=== PATIENT | male | born 1965 | race Caucasian/White ===

== ENCOUNTER 2018-01-04 08:58 | Inpatient (IN) | payer OTHER ==
[2018-01-04 14:28] VITALS: BMI 21.4
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
[2018-01-04] MEDS ORDERED: P-EPHED 60MG/TRIPROLIDI 2.5MG TABLET PO PRN (18:11)
[2018-01-04] MEDS ORDERED: MAGNESIUM CITRATE 300 ML BOTTLE PO PRN (18:11)
[2018-01-04] MEDS ORDERED: hydrOXYzine PAMOATE 50 MG CAPSULE (FP) PO PRN (18:11)
[2018-01-04] MEDS ORDERED: LOPERAMIDE HCL 2 MG CAPSULE PO PRN (18:11)
[2018-01-04] MEDS ORDERED: NICOTINE POLACRILEX 2 MG GUM BC PRN (18:11)
[2018-01-04] MEDS ORDERED: guaiFENesin/D-METHORPHAN HB 10 ML UNIT-DOSE CUPS PO PRN (18:11)
[2018-01-04] MEDS ORDERED: IBUPROFEN 400 MG TABLET (FP) PO PRN (18:11)
[2018-01-04] MEDS ORDERED: MAGNESIUM HYDROX 2400MG/30ML ORAL SUSPENSION 30 ML CUP PO PRN (18:11)
[2018-01-04] MEDS ORDERED: MENTHOL/PHENOL 1 EACH UD MM PRN (18:11)
[2018-01-04] MEDS ORDERED: ACETAMINOPHEN 325 MG TABLET (FP) PO PRN (18:11)
[2018-01-04] MEDS ORDERED: MAG HYDROX/AL HYDROX/SIMETH 30 ML UNIT-DOSE CUP PO PRN (18:11)
[2018-01-04] MEDS ORDERED: ALBUTEROL SO4 8 GM HFA INHALER IH PRN (18:14)
[2018-01-04] MEDS ORDERED: METHADONE HCL 10 MG TABLET (FOR DETOX USE ONLY) PO ONE ×2 (19:15→23:00)
[2018-01-04] MEDS ORDERED: chlordiazePOXIDE HCL 25 MG CAPSULE PO ONE (19:15)
[2018-01-04] MEDS: THIAMINE HCL 100 MG TABLET (FP) PO SCH (22:37)
[2018-01-04] MEDS: chlordiazePOXIDE HCL 25 MG CAPSULE PO SCH (22:37)
[2018-01-04] MEDS: BACITRACIN 0.9 GM PACKET TP SCH (22:37)
[2018-01-04] MEDS: MOMETASONE FUROATE 220 MCG/IH INHALER IH SCH (22:38)
[2018-01-05] MEDS: chlordiazePOXIDE HCL 25 MG CAPSULE PO SCH ×4 (05:24→22:09)
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
[2018-01-05] MEDS ORDERED: METHADONE HCL 10 MG TABLET (FOR DETOX USE ONLY) PO SCH (10:00)
[2018-01-05 10:22] LABS: HEMATOCRIT 38.2 % (35.4-49); HEMOGLOBIN 12.4 GM/dL (11.7-16.9); MCH 29.3 pg (25.7-33.7); MCHC 32.5 g/dl (32.0-35.9); MEAN CELL VOLUME 90.3 fl (80-96); PLATELET COUNT 480 K/MM3 (134-434); RBC 4.23 M/mm3 (4.00-5.60); RDW 15.5 % (11.9-15.9); WHITE BLOOD COUNT 10.2 K/mm3 (4.0-10.0)
[2018-01-05 10:34] LABS: CHLORIDE 99 mmol/L (98-107); POTASSIUM 4.4 mmol/L (3.5-5.1); SODIUM 140 mmol/L (136-145)
[2018-01-05] MEDS: BACITRACIN 0.9 GM PACKET TP SCH ×2 (10:40→22:09)
[2018-01-05] MEDS: chlordiazePOXIDE HCL 25 MG CAPSULE PO PRN ×2 (10:40→15:01)
[2018-01-05] MEDS: NICOTINE 21 MG/24 HOURS TOPICAL PATCH TD SCH (10:41)
[2018-01-05] MEDS: PRENATAL VITAMINS W/ FOLIC ACID TABLET (FP) PO SCH (10:41)
[2018-01-05] MEDS: CYCLOBENZAPRINE HCL 10 MG TABLET (FP) PO PRN (10:41)
[2018-01-05 11:14] LABS: ALBUMIN 3.7 g/dl (3.4-5.0); ALK PHOS 74 U/L (45-117); ANION GAP 11 MMOL/L (8-16); BILIRUBIN,TOTAL 0.3 mg/dL (0.2-1); BLOOD UREA NITROGEN 21 mg/dL (7-18); CALCIUM 8.9 mg/dL (8.5-10.1); CO2 30 mmol/L (21-32); CREATININE 1.4 mg/dL (0.55-1.3); GLUCOSE,RANDOM 99 mg/dL (74-106); SGOT/AST 55 U/L (15-37); SGPT/ALT 37 U/L (13-61); TOT PROT 6.9 g/dl (6.4-8.2)
--- NOTE | 2018-01-05 16:29 | PN ---
[facility] CIWA - CIWA Score Nausea/Vomitin-Mild Nausea/No Vomiting Muscle Tremors: 3 Anxiety: 3 Agitation: 3 Paroxysmal Sweats: 1-Minimal Palms Moist Orientation: 0-Oriented Tacttile Disturbances: 0-None Auditory Disturbances: 1-Very Mild Visual Disturbances: 0-None Headache: 1-Very Mild CIWA-Ar Total Score: 13 BHS COWS - Scale Resting Pulse: 0= [place] 80 or Below Sweatin= Chills/Flushing Restless Observation: 1= Difficult to Sit Still Pupil Size: 0= Normal to Room Light Bone or Joint Aches: 2= Severe Diffuse Aches Runny Nose/ Eye Tearin= Nasal Congestion GI Upset > 30mins: 2= Nausea/Diarrhea Tremor Observation of Outstretched Hands: 2= Slight Tremor Visible Yawning Observation: 2= >3x During Session Anxiety or Irritability: 2=Irritable/Anxious Goose Flesh Skin: 0=Smooth Skin COWS Score: 13 S Progress Note (SOAP) Subjective: body ache joints pain sweat tremor anxiety restlessness Objective: 01/05/18 16:28 Vital Signs Temperature 98.2 F 01/05/18 13:56 Pulse Rate 56 L 01/05/18 13:56 Respiratory Rate 18 01/05/18 13:56 Blood Pressure 111/75 01/05/18 13:56 O2 Sat by Pulse Oximetry (%) Laboratory Last Values WBC 10.2 K/mm3 (4.0-10.0) H 01/05/18 07:00 RBC 4.23 M/mm3 (4.00-5.60) 01/05/18 07:00 Hgb 12.4 GM/dL (11.7-16.9) 01/05/18 07:00 Hct 38.2 % (35.4-49) 01/05/18 07:00 MCV 90.3 fl (80-96) 01/05/18 07:00 MCH 29.3 pg (25.7-33.7) 01/05/18 07:00 MCHC 32.5 g/dl (32.0-35.9) 01/05/18 07:00 RDW 15.5 % (11.9-15.9) 01/05/18 07:00 Plt Count 480 K/MM3 (134-434) H 01/05/18 07:00 MPV 8.0 fl (7.5-11.1) 01/05/18 07:00 Sodium 140 mmol/L (136-145) 01/05/18 07:00 Potassium 4.4 mmol/L (3.5-5.1) 01/05/18 07:00 Chloride 99 mmol/L (98-107) 01/05/18 07:00 Carbon Dioxide 30 mmol/L (21-32) 01/05/18 07:00 Anion Gap 11 MMOL/L (8-16) 01/05/18 07:00 BUN 21 mg/dL (7-18) H 01/05/18 07:00 Creatinine 1.4 mg/dL (0.55-1.3) H 01/05/18 07:00 Creat Clearance w eGFR 52.81 (>60) 01/05/18 07:00 Random Glucose 99 mg/dL (74-106) 01/05/18 07:00 Calcium 8.9 mg/dL (8.5-10.1) 01/05/18 07:00 Total Bilirubin 0.3 mg/dL (0.2-1) 01/05/18 07:00 AST 55 U/L (15-37) H 01/05/18 07:00 ALT 37 U/L (13-61) 01/05/18 07:00 Alkaline Phosphatase 74 U/L (45-117) 01/05/18 07:00 Total Protein 6.9 g/dl (6.4-8.2) 01/05/18 07:00 Albumin 3.7 g/dl (3.4-5.0) 01/05/18 07:00 RPR Titer Nonreactive (NONREACTIVE) 01/05/18 07:00 HIV 1&2 Antibody Screen Negative 01/04/18 10:20 HIV P24 Antigen Negative 01/04/18 10:20 lab noted Assessment: 01/05/18 16:28 withdrawal sx Plan: continue detox
--- NOTE | 2018-01-05 16:45 | EKG ---
Test Reason : Blood Pressure : / mmHG Vent. Rate : 069 BPM Atrial Rate : 069 BPM P-R Int : 148 ms QRS Dur : 080 ms QT Int : 386 ms P-R-T Axes : 067 076 064 degrees QTc Int : 413 ms POOR DATA QUALITY, INTERPRETATION MAY BE ADVERSELY AFFECTED NORMAL SINUS RHYTHM NORMAL ECG NO PREVIOUS ECGS AVAILABLE Confirmed by Chris Sher ([id number]) on 01/05/2018 4:45:18 PM Referred By: Confirmed By:Chris Sher
[2018-01-05] MEDS: THIAMINE HCL 100 MG TABLET (FP) PO SCH (22:09)
[2018-01-05] MEDS: MELATONIN 5 MG TABLETS PO PRN (22:10)
[2018-01-05] MEDS: MOMETASONE FUROATE 220 MCG/IH INHALER IH SCH (22:10)
[2018-01-06] MEDS: chlordiazePOXIDE HCL 25 MG CAPSULE PO SCH ×3 (05:46→16:52)
--- NOTE | 2018-01-06 09:55 | PN ---
[facility] CIWA - CIWA Score Nausea/Vomitin-Mild Nausea/No Vomiting Muscle Tremors: 3 Anxiety: 4-Mod. Anxious/Guarded Agitation: 4-Moderately Restless Paroxysmal Sweats: 3 (Facial perspiration) Orientation: 0-Oriented Tacttile Disturbances: 0-None Auditory Disturbances: 0-None Visual Disturbances: 0-None Headache: 0-None Present CIWA-Ar Total Score: 15 BHS COWS - Scale Resting Pulse: 0= [place] 80 or Below Sweatin=Flushed/Facial Moisture (Facial perspiration) Restless Observation: 1= Difficult to Sit Still Pupil Size: 0= Normal to Room Light Bone or Joint Aches: 1= Mild Discomfort Runny Nose/ Eye Tearin= None GI Upset > 30mins: 2= Nausea/Diarrhea (Denies diarrhea) Tremor Observation of Outstretched Hands: 2= Slight Tremor Visible Yawning Observation: 0= None Anxiety or Irritability: 1=Feels Anxious/Irritable Goose Flesh Skin: 0=Smooth Skin COWS Score: 9 BHS Progress Note (SOAP) Subjective: States feeling very nauseous and anxious. Feeling weak. States doesn't want bacitracin for wound- needs a special cream that is ordered on-line. Prefers just a dry dressing to (R) skin graft and lesion site. Objective: A&O x3. Has perspiration of face but not profuse. Tremors of hands noted. Abd S/ NT/BS+. No drainage from (R) skin graft site. Pedal pulses (+) Vital Signs 01/06/18 01/06/18 06:00 09:48 Temperature 97.8 F 97.7 F Pulse Rate 76 71 Respiratory 20 16 Rate Blood Pressure 162/86 113/76 Lab Results WBC 10.2 K/mm3 (4.0-10.0) H 01/05/18 07:00 RBC 4.23 M/mm3 (4.00-5.60) 01/05/18 07:00 Hgb 12.4 GM/dL (11.7-16.9) 01/05/18 07:00 Hct 38.2 % (35.4-49) 01/05/18 07:00 MCV 90.3 fl (80-96) 01/05/18 07:00 MCHC 32.5 g/dl (32.0-35.9) 01/05/18 07:00 RDW 15.5 % (11.9-15.9) 01/05/18 07:00 Plt Count 480 K/MM3 (134-434) H 01/05/18 07:00 Sodium 140 mmol/L (136-145) 01/05/18 07:00 Potassium 4.4 mmol/L (3.5-5.1) 01/05/18 07:00 Chloride 99 mmol/L (98-107) 01/05/18 07:00 Carbon Dioxide 30 mmol/L (21-32) 01/05/18 07:00 Anion Gap 11 MMOL/L (8-16) 01/05/18 07:00 BUN 21 mg/dL (7-18) H 01/05/18 07:00 Creatinine 1.4 mg/dL (0.55-1.3) H 01/05/18 07:00 Random Glucose 99 mg/dL (74-106) 01/05/18 07:00 Calcium 8.9 mg/dL (8.5-10.1) 01/05/18 07:00 Labs reviewed. Assessment: Withdrawal symptoms. Plan: Continue detox. D/c bacitracin Dry dressings to (R) graft site wound/lesion daily and prn.
[2018-01-06] MEDS: PRENATAL VITAMINS W/ FOLIC ACID TABLET (FP) PO SCH (10:14)
[2018-01-06] MEDS: NICOTINE 21 MG/24 HOURS TOPICAL PATCH TD SCH (10:14)
[2018-01-06] MEDS: METHADONE HCL 5 MG TABLET (FOR DETOX USE ONLY) PO SCH (10:15)
[2018-01-06] MEDS ORDERED: cloNIDine HCL 0.1 MG TABLET PO ONE (12:27)
[2018-01-06] MEDS: chlordiazePOXIDE HCL 25 MG CAPSULE PO PRN ×2 (12:43→19:42)
[2018-01-06] MEDS ORDERED: hydrOXYzine PAMOATE 50 MG CAPSULE (FP) PO PRN (21:23)
[2018-01-06] MEDS: cloNIDine HCL 0.1 MG TABLET PO SCH (22:17)
[2018-01-06] MEDS: chlordiazePOXIDE 5 MG CAPSULE PO SCH (22:17)
[2018-01-06] MEDS: THIAMINE HCL 100 MG TABLET (FP) PO SCH (22:17)
[2018-01-06] MEDS: MOMETASONE FUROATE 220 MCG/IH INHALER IH SCH (22:20)
[2018-01-07] MEDS: chlordiazePOXIDE 5 MG CAPSULE PO SCH ×3 (04:02→17:27)
[2018-01-07] MEDS: METHADONE HCL 5 MG TABLET (FOR DETOX USE ONLY) PO SCH (10:11)
[2018-01-07] MEDS: NICOTINE 21 MG/24 HOURS TOPICAL PATCH TD SCH (10:12)
[2018-01-07] MEDS: PRENATAL VITAMINS W/ FOLIC ACID TABLET (FP) PO SCH (10:12)
[2018-01-07] MEDS: cloNIDine HCL 0.1 MG TABLET PO SCH ×2 (10:16→22:23)
[2018-01-07 10:44] LABS: URINE APPEARANCE CLEAR; URINE BILIRUBIN NEGATIVE (<2.0 mg/dL); URINE COLOR YELLOW; URINE GLUCOSE (UA) NEGATIVE (NEGATIVE); URINE KETONE NEGATIVE (NEGATIVE); URINE LEUK ESTERASE NEGATIVE (NEGATIVE); URINE NITRITE NEGATIVE (NEGATIVE); URINE PROTEIN NEGATIVE (NEGATIVE); URINE UROBILINOGEN NEGATIVE mg/dL (0.2-1.0)
[2018-01-07] MEDS: CYCLOBENZAPRINE HCL 10 MG TABLET (FP) PO PRN ×2 (11:13→17:27)
[2018-01-07] MEDS: chlordiazePOXIDE HCL 25 MG CAPSULE PO PRN (12:37)
--- NOTE | 2018-01-07 16:47 | PN ---
S Progress Note (SOAP) Subjective: feeling better sleep better at night no tremor no sweat no gi distress Objective: 01/07/18 16:47 Vital Signs Temperature 97.7 F 01/07/18 13:43 Pulse Rate 75 01/07/18 13:43 Respiratory Rate 16 01/07/18 13:43 Blood Pressure 117/54 01/07/18 13:43 O2 Sat by Pulse Oximetry (%) Laboratory Last Values WBC 10.2 K/mm3 (4.0-10.0) H 01/05/18 07:00 RBC 4.23 M/mm3 (4.00-5.60) 01/05/18 07:00 Hgb 12.4 GM/dL (11.7-16.9) 01/05/18 07:00 Hct 38.2 % (35.4-49) 01/05/18 07:00 MCV 90.3 fl (80-96) 01/05/18 07:00 MCH 29.3 pg (25.7-33.7) 01/05/18 07:00 MCHC 32.5 g/dl (32.0-35.9) 01/05/18 07:00 RDW 15.5 % (11.9-15.9) 01/05/18 07:00 Plt Count 480 K/MM3 (134-434) H 01/05/18 07:00 MPV 8.0 fl (7.5-11.1) 01/05/18 07:00 Sodium 140 mmol/L (136-145) 01/05/18 07:00 Potassium 4.4 mmol/L (3.5-5.1) 01/05/18 07:00 Chloride 99 mmol/L (98-107) 01/05/18 07:00 Carbon Dioxide 30 mmol/L (21-32) 01/05/18 07:00 Anion Gap 11 MMOL/L (8-16) 01/05/18 07:00 BUN 21 mg/dL (7-18) H 01/05/18 07:00 Creatinine 1.4 mg/dL (0.55-1.3) H 01/05/18 07:00 Creat Clearance w eGFR 52.81 (>60) 01/05/18 07:00 Random Glucose 99 mg/dL (74-106) 01/05/18 07:00 Calcium 8.9 mg/dL (8.5-10.1) 01/05/18 07:00 Total Bilirubin 0.3 mg/dL (0.2-1) 01/05/18 07:00 AST 55 U/L (15-37) H 01/05/18 07:00 ALT 37 U/L (13-61) 01/05/18 07:00 Alkaline Phosphatase 74 U/L (45-117) 01/05/18 07:00 Total Protein 6.9 g/dl (6.4-8.2) 01/05/18 07:00 Albumin 3.7 g/dl (3.4-5.0) 01/05/18 07:00 Urine Color Yellow 01/07/18 07:00 Urine Appearance Clear 01/07/18 07:00 Urine pH 7.0 (5.0-8.0) 01/07/18 07:00 Ur Specific [place] 1.014 (1.001-1.035) 01/07/18 07:00 Urine Protein Negative (NEGATIVE) 01/07/18 07:00 Urine Glucose (UA) Negative (NEGATIVE) 01/07/18 07:00 Urine Ketones Negative (NEGATIVE) 01/07/18 07:00 Urine Blood Negative (NEGATIVE) 01/07/18 07:00 Urine Nitrite Negative (NEGATIVE) 01/07/18 07:00 Urine Bilirubin Negative (<2.0 mg/dL) 01/07/18 07:00 Urine Urobilinogen Negative mg/dL (0.2-1.0) 01/07/18 07:00 Ur Leukocyte Esterase Negative (NEGATIVE) 01/07/18 07:00 RPR Titer Nonreactive (NONREACTIVE) 01/05/18 07:00 HIV 1&2 Antibody Screen Negative 01/04/18 10:20 HIV P24 Antigen Negative 01/04/18 10:20 lab noted Assessment: 01/07/18 16:48 mild withdrawal sx Plan: medically supervised detox
[2018-01-07] MEDS: MOMETASONE FUROATE 220 MCG/IH INHALER IH SCH (22:23)
[2018-01-07] MEDS: MELATONIN 5 MG TABLETS PO PRN (22:23)
[2018-01-07] MEDS: chlordiazePOXIDE HCL 10 MG CAPSULE PO SCH (22:23)
[2018-01-07] MEDS: THIAMINE HCL 100 MG TABLET (FP) PO SCH (22:23)
[2018-01-08] MEDS: chlordiazePOXIDE HCL 10 MG CAPSULE PO SCH ×2 (05:50→10:14)
[2018-01-08 06:43] VITALS: TEMP 98.2
[2018-01-08 09:24] VITALS: BP 108/50; PULSE 73
[2018-01-08] MEDS ORDERED: METHADONE HCL 10 MG TABLET (FOR DETOX USE ONLY) PO SCH (10:00)
[2018-01-08] MEDS: PRENATAL VITAMINS W/ FOLIC ACID TABLET (FP) PO SCH (10:14)
[2018-01-08] MEDS: cloNIDine HCL 0.1 MG TABLET PO SCH (10:14)
[2018-01-08] MEDS: NICOTINE 21 MG/24 HOURS TOPICAL PATCH TD SCH (10:14)
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
--- NOTE | 2018-01-08 12:42 | PN ---
[facility] Progress Note Note: PATIENT ON DETOX PROTOCOL FOR ETOH/OPIOD/BZO WITHDRAWAL. Laboratory Tests 01/04/18 01/05/18 01/05/18 10:20 07:00 07:00 WBC 10.2 H RBC 4.23 Hgb 12.4 Hct 38.2 MCV 90.3 MCH 29.3 MCHC 32.5 RDW 15.5 Plt Count 480 H MPV 8.0 Sodium 140 Potassium 4.4 Chloride 99 Carbon Dioxide 30 Anion Gap 11 BUN 21 H Creatinine 1.4 H Creat Clearance w eGFR 52.81 Random Glucose 99 Calcium 8.9 Total Bilirubin 0.3 AST 55 H ALT 37 Alkaline Phosphatase 74 Total Protein 6.9 Albumin 3.7 Urine Color Urine Appearance Urine pH Ur Specific [place] Urine Protein Urine Glucose (UA) Urine Ketones Urine Blood Urine Nitrite Urine Bilirubin Urine Urobilinogen Ur Leukocyte Esterase RPR Titer HIV 1&2 Antibody Screen Negative HIV P24 Antigen Negative 01/05/18 01/07/18 07:00 07:00 WBC RBC Hgb Hct MCV MCH MCHC RDW Plt Count MPV Sodium Potassium Chloride Carbon Dioxide Anion Gap BUN Creatinine Creat Clearance w eGFR Random Glucose Calcium Total Bilirubin AST ALT Alkaline Phosphatase Total Protein Albumin Urine Color Yellow Urine Appearance Clear Urine pH 7.0 Ur Specific [place] 1.014 Urine Protein Negative Urine Glucose (UA) Negative Urine Ketones Negative Urine Blood Negative Urine Nitrite Negative Urine Bilirubin Negative Urine Urobilinogen Negative Ur Leukocyte Esterase Negative RPR Titer Nonreactive HIV 1&2 Antibody Screen HIV P24 Antigen Vital Signs Temperature 98.2 F 01/08/18 09:23 Pulse Rate 73 01/08/18 09:23 Respiratory Rate 16 01/08/18 09:23 Blood Pressure 108/50 L 01/08/18 09:23 O2 Sat by Pulse Oximetry (%) ALERT AND ORIENTED SKIN WARM AND DRY CAR S1S2 RESP CTA BL PSYCH ANXIOUS AND IRRITABLE REGARDING PENDING DISCHARGE A/P: WITHDRAWAL SYNDROME PATIENT MEDICALLY STABLE CONTINUE ORAL FLUIDS CONTINUE DETOX PER PROTOCOL
--- NOTE | 2018-01-08 12:58 | DS ---
[facility] Detox Discharge Summary Admission Date: 01/04/18 Discharge Date: 01/08/18 - History Present History: Alcohol Dependence, Opioid Dependence Additional Comments: PATIENT REQUESTED D/C TODAY INSTEAD OF TOMORROW. DENIES SI/HI. MEDICALLY STABLE. TO FOLLOW UP WITH [facility] OUTPATIENT PROGRAM FOR ONGOING TREATMENT AND TO ATTEND GROUP MEETINGS TO PREVENT RELAPSE. DISCHARGE INSTRUCTIONS PROVIDED. - Physical Exam Results Vital Signs: Vital Signs Temperature 98.2 F 01/08/18 09:23 Pulse Rate 73 01/08/18 09:23 Respiratory Rate 16 01/08/18 09:23 Blood Pressure 108/50 L 01/08/18 09:23 O2 Sat by Pulse Oximetry (%) - Treatment Hospital Course: Detox Protocol Followed, Detoxed Safely, Responded well, Discharged Condition Good Patient has Accepted a Rehab Referral to: PAT[facility] - Medication Discharge Medications: Ambulatory Orders Mirtazapine [Remeron -] 45 mg PO HS 01/04/18 Patient's Own Medication [Patient's Own Med (Nf) -] 1 puff IN BID 01/04/18 Albuterol Sulfate Inhaler - [Ventolin HFA Inhaler -] 2 inh PO Q4H PRN #1 inhaler 01/07/18 traZODone HCL [Desyrel -] 50 mg PO HS #30 tablet 01/08/18 - Diagnosis (1) Withdrawal syndrome Current Visit: Yes Status: Resolved Qualifiers: Substance type: opioid Qualified Code(s): F11.23 - Opioid dependence with withdrawal - AMA Did Patient Leave Against Medical Advice: No
[2018-01-08] MEDS ORDERED: traZODone HCL 50 MG TABLET (FP) PO SCH (22:00)
[2018-01-09] MEDS ORDERED: METHADONE HCL 5 MG TABLET (FOR DETOX USE ONLY) PO SCH (06:00)
== END 2018-01-08 13:20 | disposition home or self-care (01) | DRG 773 ==
LOC: YASAS 08:58 → Y6N 18:50
PROC: HZ2ZZZZ Detoxification Services for Substance Abuse Treatment (ICD-10-PCS; principal; 2018-01-04)
DX: F11.23 Opioid dependence with withdrawal (principal); F10.230 Alcohol dependence with withdrawal, uncomplicated; F13.230 Sedative, hypnotic or anxiolytic dependence with withdrawal, uncomplicated; F14.20 Cocaine dependence, uncomplicated; F19.282 Other psychoactive substance dependence with psychoactive substance-induced sleep disorder; F19.24 Other psychoactive substance dependence with psychoactive substance-induced mood disorder; F41.8 Other specified anxiety disorders; L98.9 Disorder of the skin and subcutaneous tissue, unspecified; M43.9 Deforming dorsopathy, unspecified; Z94.5 Skin transplant status
CPT/HCPCS: 36415; 80053; 81003; 85027; 86593; 87389; 93005; 93010; J0735